=== PATIENT | female | born 1945 | race Caucasian/White ===

== ENCOUNTER → 2016-04-28 | Outpatient (CLI) | payer OTHER ==
[2016-04-28 08:49] LABS: BASOPHILS # (AUTO) 0 10*3/UL; BASOPHILS % (AUTO) 0 % (0-1); EOSINOPHILS % (AUTO) 0.5 % (0-8); HEMATOCRIT 43.7 % (37.0-47.0); HEMOGLOBIN 14.2 g/dL (12.0-16.0); IMM GRAN % (AUTO) 0.2 % (0-5); IMM GRAN# (AUTO) 0.01 10*3/UL; LYMPHOCYTES # (AUTO) 1.43 10*3/uL; MEAN CORPUSCULAR HEMOGLOBIN 30.8 PG (27-31); MEAN CORPUSCULAR HGB CONC 32.5 g/dL (33-37); MEAN PLATELET VOLUME 10.6 FL (7.4-12.2); MONOCYTES # (AUTO) 0.32 10*3/UL (0.3-0.8); MONOCYTES % (AUTO) 7.8 % (5-15); NEUTROPHILS % (AUTO) 56.5 % (50-80); RDW COEFFICIENT OF VARIATION 13.2 % (11.5-14.5); RED BLOOD COUNT 4.61 10^6/uL (4.20-5.40); WHITE BLOOD COUNT 4.08 10^3/uL (4.8-10.8)
[2016-04-28 08:57] LABS: ASPARTATE AMINO TRANSFERASE 25 IU/L (8-39); BILIRUBIN,TOTAL 0.5 mg/dL (0.3-1.2); BLOOD UREA NITROGEN 32 mg/dL (7-22); CALCIUM 9.7 mg/dL (8.7-10.7); CHLORIDE 105 meq/L (98-112); CREATININE 0.8 mg/dL (0.50-1.20); EST GLOMERULAR FILTRATION > 60 (>60 ml/min/1.73m(2)); GLUCOSE 96 mg/dL (78-110); HDL CHOLESTEROL 63 mg/dL (40-150); PLATELET MORPHOLOGY COMMENT NORMAL MORPHOLOGY (NORM); POTASSIUM 4.5 meq/L (3.8-5.2); SODIUM 142 meq/L (135-145); TOTAL PROTEIN 7.3 g/dL (6.1-8.0); TRIGLYCERIDES 77 mg/dL (44-200)
== END ==
LOC: LAB 08:01
PROVIDERS: ATTEND Internal Medicine
DX: I10 Essential (primary) hypertension (principal); K74.60 Unspecified cirrhosis of liver
CPT/HCPCS: 36415; 80053; 80061; 84443; 85025

== ENCOUNTER → 2016-08-18 | Outpatient (CLI) | payer OTHER | LOC: MMPC 09:00 | DX: K02.7 Dental root caries (principal); K08.89 Other specified disorders of teeth and supporting structures | CPT/HCPCS: 99212 ==